=== PATIENT | male | born 1975 | race Caucasian/White ===

== ENCOUNTER 2019-03-01 05:28 | Emergency (ER) | payer MEDICAID, OTHER ==
[2019-03-01] MEDS ORDERED: METHYLPREDNISOLONE 125 MG INJ IV (05:44)
[2019-03-01] MEDS ORDERED: IPRATROPIUM (NEB) 0.5 MG/2.5 ML AMP NEB (05:44)
[2019-03-01] MEDS ORDERED: ALBUTEROL 0.083% (NEB) 2.5 MG/3 ML AMP NEB (05:44)
[2019-03-01] MEDS: ALBUTEROL 0.083% (NEB) 2.5 MG/3 ML AMP HHN (06:23)
[2019-03-01] MEDS: IPRATROPIUM (NEB) 0.5 MG/2.5 ML AMP HHN (06:23)
[2019-03-01] MEDS: METHYLPRED. NA SUCC 250 MG in DEXTROSE 5% 50 ML IV (06:36)
== END 2019-03-01 07:40 | disposition home or self-care (01) ==
LOC: FTE 05:28
DX: J45.901 Unspecified asthma with (acute) exacerbation (principal)
CPT/HCPCS: 71045; 94644; 96365; 99284-25